=== PATIENT | male | born 1950 | race Caucasian/White ===

== ENCOUNTER 2022-04-21 06:09 | Emergency (ER) | payer MEDICARE ==
[~2022-04-21] VITALS: Ht 175.3 cm; Wt 66.8 kg
[2022-04-21] MEDS ORDERED: ATIVAN0.5 MG (07:04)
[2022-04-21 07:16] LABS: BASO # 0.02 K/mm3 (0.02-0.10); EOS # 0.16 K/mm3 (0.04-0.40); EOS % 2.8 % (0.0-4.0); HEMATOCRIT 39.1 % (42.0-52.0); MEAN CELL VOLUME 93 fl (78-100); MEAN CORPUSCULAR HEMOGLOBIN 31 pg (27-31); MEAN CORPUSCULAR HGB CONC 33 g/dL (33-37); MEAN PLATELET VOLUME 9.5 fl (7.4-10.4); MONO # 0.57 K/mm3 (0.20-0.80); NEU # 3.84 K/mm3 (1.40-6.50); PLATELET COUNT 230 K/mm3 (130-400); RED BLOOD COUNT 4.19 M/mm3 (4.20-5.60); RED CELL DISTRIBUTION WIDTH 13.9 % (11.5-14.5); WHITE BLOOD COUNT 5.7 K/mm3 (4.8-10.8)
[2022-04-21 07:23] LABS: ALBUMIN 3.6 g/dL (3.4-4.8)
[2022-04-21 07:24] LABS: POTASSIUM 3.9 mmol/L (3.5-5.1)
[2022-04-21 07:25] LABS: CALCIUM 9.3 mg/dL (8.3-10.5)
[2022-04-21] MEDS ORDERED: METOPROLOL SUCC50 M1 PO (07:25)
[2022-04-21] MEDS ORDERED: LORAZEPAM0.5 M1 PO (07:25)
[2022-04-21 07:26] LABS: TOTAL PROTEIN 6.6 g/dL (6.2-8.1)
[2022-04-21] MEDS ORDERED: ARIPIPRAZOLE2 MG PO (07:26)
[2022-04-21] MEDS ORDERED: LAMOTRIGINE25 M1 PO (07:26)
[2022-04-21] MEDS ORDERED: SERTRALINE50 MG PO (07:26)
[2022-04-21] MEDS ORDERED: QUETIAPINE FUMA50 MG PO (07:26)
[2022-04-21] MEDS ORDERED: BUDESONIDE0.25 MG/2 IH (07:26)
[2022-04-21 07:28] LABS: TOTAL BILIRUBIN 0.5 mg/dL (0.2-1.2)
[2022-04-21 07:32] LABS: MAGNESIUM 1.78 mg/dL (1.60-2.60)
[2022-04-21 08:34] LABS: URINE COLOR YELLOW
[2022-04-21 08:35] LABS: URINE APPEARANCE CLEAR; URINE BILIRUBIN NEGATIVE (NEGATIVE); URINE BLOOD NEGATIVE (NEGATIVE); URINE GLUCOSE NEGATIVE (NEGATIVE); URINE KETONE NEGATIVE (NEGATIVE); URINE LEUKOCYTE ESTERASE NEGATIVE (NEGATIVE); URINE NITRATE NEGATIVE (NEGATIVE); URINE PROTEIN(semi-quant) TRACE (NEGATIVE); URINE UROBILINOGEN NORMAL (NORMAL); URINE WBC 0-1 /hpf (0-3)
[2022-04-21 09:31] VITALS: BP 118/79
== END 2022-04-21 09:30 | disposition home or self-care (01) ==
LOC: ED 06:09
PROVIDERS: Physician Assistant
DX: R41.82 Altered mental status, unspecified (principal); I95.9 Hypotension, unspecified; J90 Pleural effusion, not elsewhere classified; R29.6 Repeated falls; Z28.310 Unvaccinated for COVID-19
CPT/HCPCS: J7030

== ENCOUNTER 2022-05-22 13:37 | Emergency (ER) | payer MEDICARE ==
[~2022-05-22 13:37] MED LIST: ARIPIPRAZOLE2 MG PO; ATIVAN0.5 MG; BUDESONIDE0.25 MG/2 IH; LAMOTRIGINE25 M1 PO; LORAZEPAM0.5 M1 PO; METOPROLOL SUCC50 M1 PO; QUETIAPINE FUMA50 MG PO; SERTRALINE50 MG PO
[2022-05-22 14:47] LABS: BASO # 0.02 K/mm3 (0.02-0.10); EOS # 0.04 K/mm3 (0.04-0.40); EOS % 0.5 % (0.0-4.0); HEMATOCRIT 41.6 % (42.0-52.0); HEMOGLOBIN 13.3 g/dL (13.5-18.0); LYMPH# 1.08 K/mm3 (1.50-4.00); MEAN CELL VOLUME 96 fl (78-100); MEAN CORPUSCULAR HEMOGLOBIN 31 pg (27-31); MEAN CORPUSCULAR HGB CONC 32 g/dL (33-37); MEAN PLATELET VOLUME 9.9 fl (7.4-10.4); MONO # 0.68 K/mm3 (0.20-0.80); PLATELET COUNT 237 K/mm3 (130-400); RED BLOOD COUNT 4.32 M/mm3 (4.20-5.60); RED CELL DISTRIBUTION WIDTH 14.1 % (11.5-14.5); WHITE BLOOD COUNT 7.5 K/mm3 (4.8-10.8)
[2022-05-22 14:58] LABS: ALBUMIN 4.1 g/dL (3.4-4.8); POTASSIUM 4.4 mmol/L (3.5-5.1); SODIUM 141 mmol/L (136-145)
[2022-05-22 14:59] LABS: CALCIUM 9.6 mg/dL (8.3-10.5)
[2022-05-22 15:00] LABS: GLUCOSE 102 mg/dL (75-110); TOTAL PROTEIN 7.2 g/dL (6.2-8.1)
[2022-05-22 15:01] LABS: CARBON DIOXIDE 20 mmol/L (23-31)
[2022-05-22 15:02] LABS: TOTAL BILIRUBIN 0.9 mg/dL (0.2-1.2)
[2022-05-22 15:06] LABS: AST-SGOT 31 U/L (5-34)
[2022-05-22 15:07] LABS: ALT/SGPT 26 U/L (0-55)
[2022-05-22 15:10] LABS: ACETAMINOPHEN < 1 ug/mL; ALCOHOL IN-HOUSE < 10 mg/dL (<10)
[2022-05-22 16:58] LABS: URINE APPEARANCE CLOUDY; URINE BILIRUBIN NEGATIVE (NEGATIVE); URINE BLOOD NEGATIVE (NEGATIVE); URINE COLOR YELLOW; URINE GLUCOSE NEGATIVE (NEGATIVE); URINE KETONE NEGATIVE (NEGATIVE); URINE LEUKOCYTE ESTERASE NEGATIVE (NEGATIVE); URINE NITRATE NEGATIVE (NEGATIVE); URINE PROTEIN(semi-quant) TRACE (NEGATIVE); URINE UROBILINOGEN NORMAL (NORMAL)
[2022-05-22 19:25] VITALS: BP 97/75
== END 2022-05-22 19:29 | disposition home or self-care (01) ==
LOC: ED 13:37
PROVIDERS: Family Medicine
DX: F32.A Depression, unspecified (principal); R45.851 Suicidal ideations; Z28.310 Unvaccinated for COVID-19